=== PATIENT | male | born 1975 | race Caucasian/White ===

== ENCOUNTER 2018-12-10 06:25 | Inpatient (IN) | payer BC, OTHER ==
[2018-12-10 07:13] LABS: Absolute Lymphocytes (CBC) 1.7 K/uL (0.7-4.9); Basophils % 0.7 % (0-1.3); Hematocrit 45.5 % (39.6-49.0); Lymphocytes % 14.3 % (15.3-44.8); MPV 8.1 fL (7.6-11.3); RBC Red Blood Cell Count 5.06 M/uL (4.33-5.43)
[2018-12-10 07:14] LABS: Protime INR 1.17
[2018-12-10] MEDS ORDERED: METOPROLOL TARTRATE 5 MG/5 ML INJ IV ONE (07:23)
[2018-12-10 07:33] LABS: Albumin 4.2 g/dL (3.4-5.0); Bilirubin Direct 0.2 mg/dL (0-0.2); Bilirubin Total 0.9 mg/dL (0.2-1.0); Magnesium 2.2 mg/dL (1.8-2.4); Potassium 3.5 mmol/L (3.5-5.1); Protein, Total 7.8 g/dL (6.4-8.2); Troponin (Emerg Dept Use Only) 0.26 ng/mL (0.0-0.045)
--- NOTE | 2018-12-10 07:46 | ER ---
Nurse's Notes [facility] Name: Jere Pacheco Age: 43 yrs Sex: Male : 1975 Arrival Date: 12/10/2018 Time: 06:27 Bed 6 Private MD: Diagnosis: Cardiomegaly;Cardiomyopathy;Cardiac murmurs and other cardiac sounds Presentation: 12/10 06:48 Presenting complaint: Patient states: woke up this morning suddenly i felt my heart is rr5 raising around 135 bpm and my BP 170/112 mmHg. last time i went to my doctor doctor because i feel some SOB started 2-3 weeks ago and he diagnosed me something like lung tightening. he prescribed me some medications for that. Transition of care: patient was not received from another setting of care. Onset of symptoms was December 10, 2018. Risk Assessment: Do you want to hurt yourself or someone else? Patient reports no desire to harm self or others. Initial Sepsis Screen: Does the patient meet any 2 criteria? No. Patient's initial sepsis screen is negative. Does the patient have a suspected source of infection? No. Patient's initial sepsis screen is negative. Care prior to arrival: None. 06:48 Method Of Arrival: Ambulatory rr5 06:48 Acuity: EVAN 3 rr5 11:26 Acuity: EVAN 2 la1 Historical: - Allergies: 06:53 Erythromycin; rr5 - Home Meds: 06:53 lisinopril 5 mg Oral tab 1 tab once daily [Active]; anxiety medication [Active]; rr5 levothyroxine oral [Active]; Prednisone Oral [Active]; Symbicort inhalation inhalation [Active]; - PMHx: 06:53 Hypertension; hodgkins lymphoma; Hypothyroidism; Anxiety; Heart Murmur; rr5 - PSHx: 06:53 sinuplasty; biopsy; rr5 - Immunization history:: Adult Immunizations up to date. - Social history:: Smoking status: Patient/guardian denies using tobacco, Patient uses alcohol, only on a social basis. - Ebola Screening: : Patient negative for fever greater than or equal to 101.5 degrees Fahrenheit, and additional compatible Ebola Virus Disease symptoms Patient denies exposure to infectious person Patient denies travel to an Ebola-affected area in the 21 days before illness onset. Screenin:05 Abuse screen: Denies threats or abuse. Denies injuries from another. Nutritional rr5 screening: No deficits noted. Tuberculosis screening: No symptoms or risk factors identified. Fall Risk IV access (20 points). Total Garrett Fall Scale indicates No Risk (0-24 pts). Assessment: 07:26 Reassessment: Patient appears in no apparent distress at this time. Aubrey ENG notified of sg pt VS, ordered to hold on metoprolol until further notice, will continue to monitor. 08:05 Reassessment: Patient appears in no apparent distress at this time. Patient and/or sg family updated on plan of care and expected duration. Pain level reassessed. Patient is alert, oriented x 3, equal unlabored respirations, skin warm/dry/pink. awaiting ECHO at this time, awaiting admission, awaiting a bed assignment Patient states feeling better. 08:55 Reassessment: Patient appears in no apparent distress at this time. Patient is alert, sg oriented x 3, equal unlabored respirations, skin warm/dry/pink. ECHO at bedside at this time, awaiting a bed for admission, will continue to monitor. 09:30 Reassessment: Reassessment: Echo remains at bedside at this time. sg 10:30 Reassessment: Patient appears in no apparent distress at this time. at bedside evaluating pt at this time. 10:40 Reassessment: Patient appears in no apparent distress at this time. Patient is alert, sg oriented x 3, equal unlabored respirations, skin warm/dry/pink. pt reports felt palpitations but have resolved. 10:55 Reassessment: Patient is alert, oriented x 3, equal unlabored respirations, skin sg warm/dry/pink. pt placed back to bedside monitors. 10:58 Reassessment: pt reports feeling dizzy with chest palpitations, VTACH noted on the sg monitor, Aubrey ENG at bedside, orders received to medication orders, pt medicated, see EMAR. 12:15 Reassessment: Patient appears in no apparent distress at this time. Patient and/or sg family updated on plan of care and expected duration. Pain level reassessed. Patient is alert, oriented x 3, equal unlabored respirations, skin warm/dry/pink. IV medication continues to infuse at this time, awaiting a bed assignment. 13:36 Reassessment: Patient appears in no apparent distress at this time. Patient and/or sg family updated on plan of care and expected duration. Pain level reassessed. Patient is alert, oriented x 3, equal unlabored respirations, skin warm/dry/pink. awaiting a bed assignment at this time, pt remains in bed alert and orientedx3. Vital Signs: 06:48 BP 157 / 113; Pulse 112; Resp 19; Temp 98; Pulse Ox 100% ; Weight 85.73 kg; Height 5 rr5 ft. 8 in. (172.72 cm); Pain 0/10; 07:24 BP 124 / 96; Pulse 93; Resp 17; Pulse Ox 99% on R/A; sg 08:48 BP 120 / 94; Pulse 90; Resp 17; Pulse Ox 99% on R/A; sg 10:53 BP 154 / 113; Pulse 157 MON; Resp 26 S; Pulse Ox 100% on R/A; sg 10:55 Pulse Ox 100% on 2 lpm NC; sg 11:20 BP 140 / 96; Pulse 123; Resp 17; Pulse Ox 100% on 2 lpm NC; sg 12:00 BP 132 / 91; Pulse 100 MON; Resp 17; Pulse Ox 100% on R/A; sg 14:48 BP 133 / 92; Pulse 109; Resp 14; Pulse Ox 99% on R/A; hb 06:48 Body Mass Index 28.74 (85.73 kg, 172.72 cm) rr5 10:53 Aubrey ENG notified pt VS, at bedside at this time ED Course: 06:27 Patient arrived in ED. es 06:33 [facility] jr8 06:33 Matt Martínez MD is Attending Physician. jr8 06:50 Triage completed. rr5 06:50 Inserted saline lock: 20 gauge in right antecubital area, using aseptic technique. rr5 ,using aseptic technique. inserted by [facility] Blood collected. 06:53 Arm band placed on. rr5 06:55 Initial lab(s) drawn, by ED staff, sent to lab. Initial Neb Treatment Given as ordered rr5 Patient was instructed and evaluated on procedure. 07:00 EKG done, by ED staff, reviewed by Aubrey ENG. rr5 07:05 Patient has correct armband on for positive identification. Placed in gown. Bed in low rr5 position. equipment monitor phototypesetting on. Pulse ox on. NIBP on. 07:26 Familia Johnson, RN is Primary Nurse. sg 07:26 XRAY Chest (1 view) In Process Unspecified. EDMS 07:44 Fuentes Ruth MD is Hospitalizing Provider. jr8 11:24 EKG done, by [employer]. reviewed by Aubrey ENG TIMES TWO. at1 14:33 Diet: Patient given a heart healthy meal tray. sg 14:50 No provider procedures requiring assistance completed. Patient admitted, IV remains in hb place. intact, No redness/swelling at site. Administered Medications: 11:00 Drug: amiodarone 150 mg Route: IVP; Site: right antecubital; hb 11:00 Drug: amiodarone 900 mg, D5W 500 ml {Note: 360 mg/200ml concentration bag .} Route: hb IVPB; Rate: 1 mg/min; Site: right antecubital; 12:03 Not Given (Physician Discretion): Metoprolol 5 mg IVP once; Hold for SBP <100 or HR <60.sg Outcome: 07:45 Decision to Hospitalize by Provider. jr8 14:54 Admitted to ICU accompanied by nurse, accompanied by tech, family with patient, via stretcher, room 6, on monitor, with chart, Report called to JACKIE Vick 14:54 Condition: stable 14:54 Instructed on the need for admit, safety practices, Demonstrated understanding of instructions. 15:18 Patient left the ED. sg Signatures: Dispatcher [employer] EDIN Familia Johnson, RN RN Mayda Fitzgerald Josh, PA PA jr8 Lizbet Oliveira, chief human resources officer EKG Tat1 Bernabe Webb RN RN la1 iLta Viramontes RN RN hb Roque, Raymond RN RN rr5 Corrections: (The following items were deleted from the chart) 11:11 09:30 Reassessment: sg sg
--- NOTE | 2018-12-10 07:46 | EDPHYS ---
Physician Documentation [facility] Name: Jere Pacheco Age: 43 yrs Sex: Male : 1975 Arrival Date: 12/10/2018 Time: 06:27 Bed 6 Private MD: ED Physician Matt Martínez HPI: 12/10 07:24 This 43 yrs old Male presents to ER via Ambulatory with complaints of High jr8 Blood Pressure, Anxiety. 07:24 The patient has elevated blood pressure and discovered this at home. Onset: The jr8 symptoms/episode began/occurred acutely, today. Associated signs and symptoms: Pertinent positives: palpitations. The patient has not experienced similar symptoms in the past. The patient has not recently seen a physician. Patient stated that for the past 3 weeks has had on/off shortness of breath. Stated that today upon awakening had palpitations and noted that his blood pressure was elevated. Historical: - Allergies: 06:53 Erythromycin; rr5 - Home Meds: 06:53 lisinopril 5 mg Oral tab 1 tab once daily [Active]; anxiety medication [Active]; rr5 levothyroxine oral [Active]; Prednisone Oral [Active]; Symbicort inhalation inhalation [Active]; - PMHx: 06:53 Hypertension; hodgkins lymphoma; Hypothyroidism; Anxiety; Heart Murmur; rr5 - PSHx: 06:53 sinuplasty; biopsy; rr5 - Immunization history:: Adult Immunizations up to date. - Social history:: Smoking status: Patient/guardian denies using tobacco, Patient uses alcohol, only on a social basis. - Ebola Screening: : Patient negative for fever greater than or equal to 101.5 degrees Fahrenheit, and additional compatible Ebola Virus Disease symptoms Patient denies exposure to infectious person Patient denies travel to an Ebola-affected area in the 21 days before illness onset. ROS: 07:24 Eyes: Negative for injury, pain, redness, and discharge, ENT: Negative for injury, jr8 pain, and discharge, Neck: Negative for injury, pain, and swelling, Abdomen/GI: Negative for abdominal pain, nausea, vomiting, diarrhea, and constipation, Back: Negative for injury and pain, MS/Extremity: Negative for injury and deformity, Skin: Negative for injury, rash, and discoloration, Neuro: Negative for headache, weakness, numbness, tingling, and seizure. 07:24 Cardiovascular: Positive for palpitations. 07:24 Respiratory: Positive for shortness of breath. Exam: 07:24 Eyes: Pupils equal round and reactive to light, extra-ocular motions intact. Lids and jr8 lashes normal. Conjunctiva and sclera are non-icteric and not injected. Cornea within normal limits. Periorbital areas with no swelling, redness, or edema. ENT: Nares patent. No nasal discharge, no septal abnormalities noted. Tympanic membranes are normal and external auditory canals are clear. Oropharynx with no redness, swelling, or masses, exudates, or evidence of obstruction, uvula midline. Mucous membranes moist. Neck: Trachea midline, no thyromegaly or masses palpated, and no cervical lymphadenopathy. Supple, full range of motion without nuchal rigidity, or vertebral point tenderness. No Meningismus. Respiratory: Lungs have equal breath sounds bilaterally, clear to auscultation and percussion. No rales, rhonchi or wheezes noted. No increased work of breathing, no retractions or nasal flaring. Abdomen/GI: Soft, non-tender, with normal bowel sounds. No distension or tympany. No guarding or rebound. No evidence of tenderness throughout. Back: No spinal tenderness. No costovertebral tenderness. Full range of motion. Skin: Warm, dry with normal turgor. Normal color with no rashes, no lesions, and no evidence of cellulitis. MS/ Extremity: Pulses equal, no cyanosis. Neurovascular intact. Full, normal range of motion. Neuro: Awake and alert, GCS 15, oriented to person, place, time, and situation. Cranial nerves II-XII grossly intact. Motor strength 5/5 in all extremities. Sensory grossly intact. Cerebellar exam normal. Normal gait. 07:24 Cardiovascular: Rate: tachycardic, Rhythm: regular, Pulses: Pulses are 2+ in right radial artery and left radial artery. Heart sounds: murmur, systolic, grade 4 over 6, Edema: is not appreciated, JVD: is not appreciated. Vital Signs: 06:48 BP 157 / 113; Pulse 112; Resp 19; Temp 98; Pulse Ox 100% ; Weight 85.73 kg; Height 5 rr5 ft. 8 in. (172.72 cm); Pain 0/10; 07:24 BP 124 / 96; Pulse 93; Resp 17; Pulse Ox 99% on R/A; sg 08:48 BP 120 / 94; Pulse 90; Resp 17; Pulse Ox 99% on R/A; sg 10:53 BP 154 / 113; Pulse 157 MON; Resp 26 S; Pulse Ox 100% on R/A; sg 10:55 Pulse Ox 100% on 2 lpm NC; sg 11:20 BP 140 / 96; Pulse 123; Resp 17; Pulse Ox 100% on 2 lpm NC; sg 12:00 BP 132 / 91; Pulse 100 MON; Resp 17; Pulse Ox 100% on R/A; sg 14:48 BP 133 / 92; Pulse 109; Resp 14; Pulse Ox 99% on R/A; hb 06:48 Body Mass Index 28.74 (85.73 kg, 172.72 cm) rr5 10:53 Aubrey ENG notified pt VS, at bedside at this time sg MDM: 06:33 Patient medically screened. jr8 07:43 Data reviewed: vital signs, nurses notes, lab test result(s), EKG, radiologic studies, jr8 plain films. Data interpreted: Pulse oximetry: on room air is 99 %. Interpretation: normal. Counseling: I had a detailed discussion with the patient and/or guardian regarding: the historical points, exam findings, and any diagnostic results supporting the discharge/admit diagnosis, lab results, radiology results, the need for further work-up and treatment in the hospital. Physician consultation: Fuentes Ruth MD was called at 07:44, was contacted at 07:44, regarding admission, to the telemetry unit. consult, patient's condition, and will see patient. 11:07 ED course: Patient had stable pulseful V-Tach at rate of 150 that lasted about 2 jr8 minutes and then went back into LBBB rhythm with tachycardia at 126. Amiodarone given and will be upgraded to ICU . 12/10 06:47 Order name: Basic Metabolic Panel; Complete Time: 07:35 jr8 12/10 06:47 Order name: CBC with Diff; Complete Time: 07:24 jr8 12/10 06:47 Order name: LFT's; Complete Time: 07:35 jr8 12/10 06:47 Order name: Magnesium; Complete Time: 07:35 jr8 12/10 06:47 Order name: NT PRO-BNP; Complete Time: 07:35 12/10 06:47 Order name: PT-INR; Complete Time: 07:24 12/10 06:47 Order name: Troponin (emerg Dept Use Only); Complete Time: 07:35 12/10 06:47 Order name: XRAY Chest (1 view); Complete Time: 08:39 12/10 06:47 Order name: EKG; Complete Time: 06:48 12/10 07:51 Order name: Echo with Doppler EDMS 12/10 13:41 Order name: Diet 2 Gm Sodium; Complete Time: 13:42 ms 12/10 06:47 Order name: Cardiac monitoring; Complete Time: 07:03 12/10 06:47 Order name: EKG - Nurse/Tech; Complete Time: 07:03 12/10 06:47 Order name: IV Saline Lock; Complete Time: 07:03 12/10 06:47 Order name: Labs collected and sent; Complete Time: 07:03 12/10 06:47 Order name: O2 Per Protocol; Complete Time: 07:03 12/10 06:47 Order name: O2 Sat Monitoring; Complete Time: 07:04 Administered Medications: 11:00 Drug: amiodarone 150 mg Route: IVP; Site: right antecubital; hb 11:00 Drug: amiodarone 900 mg, D5W 500 ml {Note: 360 mg/200ml concentration bag .} Route: hb IVPB; Rate: 1 mg/min; Site: right antecubital; 12:03 Not Given (Physician Discretion): Metoprolol 5 mg IVP once; Hold for SBP <100 or HR <60.sg Disposition: 12/11 04:20 Co-signature as Attending Physician, Matt Martínez MD I agree with the assessment and lynn plan of care. Disposition: 12/10/18 07:45 Hospitalization ordered by Fuentes Ruth for Inpatient Admission. Preliminary diagnosis are Cardiomegaly, Cardiomyopathy, Cardiac murmurs and other cardiac sounds. - Bed requested for Intensive Care Unit. - Status is Inpatient Admission. sg - Condition is Stable. - Problem is new. - Symptoms have improved. UTI on Admission? No Critical care time excluding procedures: 12/10 11:08 Critical care time: Bedside Care: 20 minutes, Consultation: 15 minutes. Total time: 35 jr8 minutes Signatures: Dispatcher [employer] EDDaphnie Antoine, RN RN dw Familia Johnson RN Matt Deleon MD MD cha Roszak, Josh, PA PA jr8 Lita Viramontes, RN RN Corwin Montanez, RN RN rr5 Corrections: (The following items were deleted from the chart) 11:07 07:45 Hospitalization Ordered by Fuentes Ruth MD for Inpatient Admission. Preliminary jr8 diagnosis is Cardiomegaly; Cardiomyopathy; Cardiac murmurs and other cardiac sounds. Bed requested for Telemetry/MedSurg (Inpatient). Status is Inpatient Admission. Condition is Stable. Problem is new. Symptoms have improved. UTI on Admission? No. jr8 14:38 11:07 12/10/2018 07:45 Hospitalization Ordered by Fuentes Ruth MD for Inpatient dw Admission. Preliminary diagnosis is Cardiomegaly; Cardiomyopathy; Cardiac murmurs and other cardiac sounds. Bed requested for Intensive Care Unit. Status is Inpatient Admission. Condition is Stable. Problem is new. Symptoms have improved. UTI on Admission? No. jr8 15:18 14:38 12/10/2018 07:45 Hospitalization Ordered by Fuentes Ruth MD for Inpatient sg Admission. Preliminary diagnosis is Cardiomegaly; Cardiomyopathy; Cardiac murmurs and other cardiac sounds. Bed requested for Intensive Care Unit. Status is Inpatient Admission. Condition is Stable. Problem is new. Symptoms have improved. UTI on Admission? No. dw
--- NOTE | 2018-12-10 08:24 | RAD REPORT ---
EXAM DESCRIPTION: Ciara Single View12/10/2018 7:27 am CLINICAL HISTORY: Shortness of breath COMPARISON: 2018 FINDINGS: Calcified hilar and calcified mediastinal lymph nodes are unchanged The lungs appear clear of acute infiltrate. The heart is normal size IMPRESSION: No acute abnormalities displayed
[2018-12-10] MEDS ORDERED: NA CHLORIDE 0.9% 100 ML IV ONE (10:58)
[2018-12-10] MEDS ORDERED: AMIODARONE HCL 150 MG/3 ML INJ IV ONE ×2 (10:58→11:01)
[2018-12-10] MEDS ORDERED: AMIODARONE IN DEXTROSE,ISO-OSM 360 MG/200 ML BAG IV ONE (10:58)
--- NOTE | 2018-12-10 11:03 | EKG ---
Test Date: 2018-12-10 Test Time: 06:59:04 Underground Repairer: RR MEASUREMENT RESULTS: Intervals: Rate: 95 [place]: 156 QRSD: 150 QT: 398 QTc: 500 [place]: P: 40 [place]: 156 QRS: 34 T: -59 INTERPRETIVE STATEMENTS: Normal sinus rhythm Left bundle branch block Abnormal ECG Compared to ECG 02/14/2017 11:46:55 Left bundle-branch block now present Left anterior fascicular block no longer present Left ventricular hypertrophy no longer present Electronically Signed On 12-10-18 11:02:47 CDT by Luis Alberto Munoz
--- NOTE | 2018-12-10 11:10 | ECHO ---
HEIGHT: 5 ft 8 in WEIGHT: 189 lb oz DATE OF STUDY: 12/10/[address]: Richard Carcamo 2-DIMENSIONAL: YES M.MODE: YES DOPPLER: YES COLOR FLOW: YES TDS: NO PORTABLE: NO DEFINITY: NO BUBBLE STUDY: NO DIAGNOSIS: ELEVATED TROPONIN CARDIAC HISTORY: CATHERIZATION: NO SURGERY: NO PROSTHETIC VALVE: NO PACEMAKER: NO MEASUREMENTS (cm) DIASTOLIC (NORMALS) SYSTOLIC (NORMALS) IVSd 1.1 (0.6-1.2) LA Diam 3.0 (1.9-4.0) LVEF 62% LVIDd 4.0 (3.5-5.7) LVIDs 2.7 (2.0-3.5) %FS 33% LVPWd 0.9 (0.6-1.2) Ao Diam 2.7 (2.0-3.7) 2 DIMENSIONAL ASSESSMENT: RIGHT ATRIUM: NORMAL LEFT ATRIUM: NORMAL RIGHT VENTRICLE: NORMAL LEFT VENTRICLE: NORMAL TRICUSPID VALVE: NORMAL MITRAL VALVE: NORMAL PULMONIC VALVE: NORMAL AORTIC VALVE: STENOSIS PERICARDIAL EFFUSION: NONE AORTIC ROOT: NORMAL LEFT VENTRICULAR WALL MOTION: NORMAL. DOPPLER/COLOR FLOW: MODERATE AORTIC STENOSIS. PEAK/MEAN GRADIENT 37/20 mmHg, ESTIMATED AORTIC VALVE AREA 1.0 CENTIMETERS SQUARED. MILD AORTIC, MITRAL AND TRICUSPID REGURGITATION. NORMAL RIGHT VENTRICULAR SYSTOLIC PRESSURE. COMMENTS: NORMAL LEFT VENTRICULAR EJECTION FRACTION. MODERATE AORTIC STENOSIS. MILD AORTIC, MITRAL AND TRICUSPID REGURGITATION. TECHNOLOGIST: BRICE HORAN
[2018-12-10] MEDS: LISINOPRIL 5 MG TAB PO SCH (14:49)
[2018-12-10] MEDS ORDERED: ONDANSETRON 4 MG/2 ML VIAL IV PRN (14:49)
[2018-12-10] MEDS ORDERED: AMIODARONE HCL 900 MG in Dextrose 5%-Water 482 ML IV SCH (15:00)
--- NOTE | 2018-12-10 15:51 | EKG ---
Test Date: 2018-12-10 Test Time: 10:58:15 Chief Pharmacist: RADHA MEASUREMENT RESULTS: Intervals: Rate: 128 VT: 128 QRSD: 150 QT: 340 QTc: 496 [place]: P: 45 VT: 128 QRS: -27 T: 117 INTERPRETIVE STATEMENTS: Sinus tachycardia Left bundle branch block Abnormal ECG Compared to ECG 12/10/2018 10:57:47 No significant changes Electronically Signed On 12-10-18 15:51:17 CDT by Luis Alberto Munoz
--- NOTE | 2018-12-10 15:51 | EKG ---
Test Date: 2018-12-10 Test Time: 10:57:47 Senior Human Resources Representative: RADHA MEASUREMENT RESULTS: Intervals: Rate: 133 [place]: 112 QRSD: 146 QT: 326 QTc: 485 [place]: P: -11 CA: 112 QRS: -28 T: 137 INTERPRETIVE STATEMENTS: Sinus tachycardia Left bundle branch block Abnormal ECG Compared to ECG 12/10/2018 06:59:04 Sinus rhythm no longer present Electronically Signed On 12-10-18 15:51:19 CDT by Luis Alberto Munoz
[2018-12-10] MEDS ORDERED: ALBUTEROL 2.5 MG/3 ML NEB SOL NEB PRN (16:10)
--- NOTE | 2018-12-10 16:17 | CON ---
Chief Complaint: Heart racing and dyspnea. History Of Present Illness: Mr. Pacheco has been aware of having heart murmur 3 years ago, and ech ocardiogram suggested aortic sclerosis, no stenosis, but now his murmur is worst. He has symptoms of dyspnea. He felt his heart rate went about 130. He counted it using a watch. No EKG. His heart r ate here in the emergency room is right around exactly 100; and when he had his EKG, the heart rate w as 95. It was sinus rhythm. He has a new left bundle-branch block. It looks like his QRS is wideni ng progressively over the years old. Older EKG showed left ventricular hypertrophy with QRS widening . Past Medical History: Hypertension, Hodgkin lymphoma, hypothyroidism, heart murmur. Past Surgical History: He has had sinuplasty. No other surgeries. Medications: Outpatient medications have been lisinopril, levothyroxine, prednisone, Symbicort. Social History: He uses no tobacco, alcohol, or illegal drugs. Physical Examination: VITAL SIGNS: Blood pressure 124/96, pulse 93. He is 5 feet 8 inches tall, 85 kg. Body mass index, overweight 28.74. HEENT: Unremarkable. LUNGS: Clear. HEART: Reveals a systolic murmur. I do not appreciate a diastolic murmur. ABDOMEN: Soft. EXTREMITIES: No cyanosis, clubbing, or edema. He has a troponin level is 0.26. Impression: The patient has probably significant aortic valvular heart disease. The echocardiograph ic gradient was just 36 mmHg peak, but I suspect it is actually worse than that. We will get serial enzymes and observe him overnight. He probably needs to have a right and left heart catheterization and consideration of fixing the valve. Thank you very much for your kind referral of Mr. Pacheco. I will follow him with you. NORBERT/LAVERNE Voice ID: [id number] Report ID: [id number]
[2018-12-10] MEDS: ASPIRIN EC 81 MG TAB PO SCH (16:20)
[2018-12-10] MEDS: ENOXAPARIN 100 MG/ML SYR SQ SCH (16:20)
[2018-12-10] MEDS: FUROSEMIDE 40 MG/4 ML VIAL IV SCH ×2 (16:20→17:00)
[2018-12-10] MEDS: METOPROLOL TAR 25 MG TAB PO SCH ×2 (16:21→22:40)
[2018-12-10] MEDS ORDERED: ALBUTEROL 2.5 MG/3 ML NEB SOL NEB SCH (20:00)
[2018-12-10] MEDS: ATORVASTATIN 40 MG TAB PO SCH (21:16)
--- NOTE | 2018-12-10 22:25 | HP ---
Date of Admission: 12/10/2018 Chief Complaint: Shortness of breath. Primary Care Physician: Minerva Dodd. Consultants: Dr. Munoz with Cardiology. History Of Present Illness: The patient is a 43-year-old male with past medical history of hypertension, hyperlipidemia, hypothyroidism, history of cardiac murmur and lymphoma that was diagnosed 20 years ago, treated, currently in remission. Patient was in his usual state of health until the past few days , he has been having shortness of breath worse than usual and has had several bouts of palpitations. Patient has known about his murmur in the past and had the echocardiogram done in 2016, which showed mild aortic and tricuspid regurg, aortic sclerosis with no stenosis. The patient came into the ER due to worsening condition. Symptoms are constant, moderate, progressively worsening. He denies any fevers, chills, nausea, vomiting, cough, or sputum production. No ill contacts. In the ER, he was tachycardic, had some chest tightness. His workup revealed a troponin of 0.26. BNP was elevated at 860. White blood cell count was 11.5. Chest x-ray was clear. Patient was given metoprolol. He was then referred for admission. When seen in the ER, he was awake, alert, oriented x3, in some mild distress. Past Medical History: Hypertension, hyperlipidemia, hypothyroidism, history of heart murmur, lymphoma treated 20 years ago with chemo and radiation therapy. Surgical History: The patient had a sinus surgery, sounds like a septoplasty, also had biopsy for his lymphoma 20 years ago. Allergies: TO ERYTHROMYCIN, HOWEVER, STATES THAT HE HAS RECEIVED IT SINCE HIS CHILDHOOD ALLERGY AND HAS DONE OKAY. Medications: List reviewed. Social History: Patient denies any tobacco use. No significant alcohol use or IV drug use. Family History: Grandfather had murmur and also had atrial fibrillation. Grandmother of [place]. Review of Systems: Ten-point system reviewed, negative except as per HPI. Physical Examination: Vital Signs: Blood pressure 157/113, pulse 112, respirations 19, temperature 98 , O2 100% on room air. General: Awake, alert, oriented x3, in some mild distress, somewhat ill- appearing male. HEENT: Normocephalic, atraumatic. PERRLA. EOMI. Moist mucous membranes. Oropharynx is clear. Conjunctivae are anicteric. Neck: Supple. No JVD. Trachea midline. CV: S1, S2. Sinus tachycardia. Peripheral pulses present. Respiratory: Moving air well bilaterally. No wheezing or stridor. No use of accessory muscles. Gastrointestinal: Abdomen is soft, nontender, nondistended. Positive bowel sounds. No guarding or rigidity. Extremities: No clubbing, cyanosis, or edema. No calf tenderness. Neuro: Cranial nerves 2 through 12 intact grossly. No focal neurological deficit. Speech is normal. Please see addendum for Assessment and plan /LAVERNE Voice ID: [id number] MTDD
--- NOTE | 2018-12-10 22:51 | HP ---
Date of Admission: 12/10/2018 Addendum to H&P: Laboratory Data: Sodium 140, potassium 3.5, chloride 106, CO2 of 28, BUN 17, creatinine 1.3, glucose 127, calcium 8.8, magnesium 2.2, troponin 0.26. INR 1.17. WBC 11.5, H and H 15 and 45.5, platelets 346. EKG shows normal sinus rhythm, rate of 95, left bundle branch block. Abnormal EKG compared to previous from February 14, 2017. Left bundle branch block is new. Chest x-ray personally reviewed shows no acute abnormality. Assessment: A 43-year-old male with, 1. Psh-RO-bfozoekam myocardial infarction. We will start him on chest pain guidelines, aspirin, statin, beta-kinjal and MARCELLUS inhibitor. Cardiology has been consulted. We will obtain echocardiogram and get serial cardiac enzymes. We will start him on Lovenox therapeutic dose. 2. Shortness of breath, likely related to valvular disease. We will obtain echocardiogram. Currently somewhat tachycardic, however saturating well on room air. 3. Heart murmur. Patient has history of mild aortic sclerosis. We will follow up on echocardiogram report. Appreciate Cardiology's input. 4. Essential hypertension. We will resume home medications as appropriate. 5. Mixed hyperlipidemia. We will check lipid panel, continue statin. 6. Hypothyroidism. Continue Synthroid. 7. History of lymphoma, currently in remission. 8. Deep vein thrombosis prophylaxis with Lovenox. Plan: Admit patient to Med-Surg, place as inpatient. CHARU Voice ID: [id number] [id number]
[2018-12-11 05:29] LABS: Hematocrit 43.9 % (39.6-49.0); Lymphocytes % 16.1 % (15.3-44.8); MPV 8.1 fL (7.6-11.3); RBC Red Blood Cell Count 4.91 M/uL (4.33-5.43)
[2018-12-11 05:51] LABS: Albumin 3.7 g/dL (3.4-5.0); Bilirubin Total 0.7 mg/dL (0.2-1.0); Magnesium 2.4 mg/dL (1.8-2.4); Phosphorus 3.6 mg/dL (2.5-4.9); Potassium 3.8 mmol/L (3.5-5.1); Protein, Total 7.2 g/dL (6.4-8.2); Thyroid Stimulating Hormone 3.73 uIU/mL (0.360-3.740)
[2018-12-11] MEDS ORDERED: POTASSIUM 25 MEQ EFFERV TAB PO ONE (06:00)
[2018-12-11] MEDS: LEVOTHYROXINE SOD 0.1 MG TAB PO SCH (06:40)
[2018-12-11] MEDS: ENOXAPARIN 100 MG/ML SYR SQ SCH ×2 (06:40→18:02)
[2018-12-11] MEDS: LISINOPRIL 5 MG TAB PO SCH (08:57)
[2018-12-11] MEDS: BUPROPION HCL XL 150 MG TAB PO SCH (08:57)
[2018-12-11] MEDS: ASPIRIN EC 81 MG TAB PO SCH (08:57)
[2018-12-11] MEDS ORDERED: predniSONE 10 MG TAB PO SCH (09:00)
[2018-12-11] MEDS: FUROSEMIDE 40 MG/4 ML VIAL IV SCH ×2 (09:00→14:46)
[2018-12-11] MEDS: METOPROLOL TAR 25 MG TAB PO SCH ×2 (09:00→21:00)
[2018-12-11] MEDS ORDERED: COENZYME Q10 400 MG PO SCH (09:00)
[2018-12-11] MEDS ORDERED: HOME MED 1 EA UNK (Budesonide/Formoterol Fumarate [Symbicort 80-4.5 Mcg Inhaler] 2 PUFF) IH SCH (09:00)
[2018-12-11] MEDS: PANTOPRAZOLE 40MG TABLET PO SCH (14:45)
[2018-12-11] MEDS: AMIODARONE HCL 200 MG TAB PO SCH ×2 (14:45→21:11)
[2018-12-11] MEDS: COENZYME Q10- 200 MG CAP PO SCH (14:46)
--- NOTE | 2018-12-11 16:47 | PN ---
Mr. Pacheco seems to have abnormal enzymes, a lot of symptoms, so even though the echo says his aor tic stenosis is moderate, I suspect it is more severe. I have recommended that on Thursday we do a car diac cath. I think we should try to wean him off amiodarone, if successful, we could get him out of ICU perhaps, but he has aortic stenosis. He may have CAD as well. We suspect that the cause of his aortic stenosis is radiation right to the heart area. 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 If he has multivessel CAD and the aortic stenosis, I will recommend simultane ous aortic valve replacement and bypass surgery. NORBERT/LAVERNE Voice ID: [id number] Report ID: [id number]
--- NOTE | 2018-12-11 16:48 | PN ---
Date of Progress Note: 12/11/2018 Subjective: Patient is seen and examined. Chart reviewed and case discussed with RN and Dr. Munoz. Patient did well overnight. He did have some episodes of V-tach, was started on IV amiodarone from the ER. Medications list reviewed. Physical Examination: Vital Signs: Temperature 97.8, heart rate 68, blood pressure 93/67, respirations 17, O2 100% on room air. General: Awake, alert, oriented x3. Does not appear to be in any acute distress. CV: S1, S2. Regular rate and rhythm. Respiratory: Moving air well bilaterally. No wheezing or stridor. Gastrointestinal: Abdomen is soft, nontender, nondistended. Positive bowel sounds. Extremities: No clubbing, cyanosis, or edema. Neuro: Cranial nerves 2 through 12 intact grossly. No focal neurological deficit. Speech is normal . Laboratory Data: Sodium 140, potassium 3.8, chloride 104, CO2 of 30, BUN 17, creatinine 1.25, glucos e 99, calcium 8.7, phosphorus 3.6, magnesium 2.4. Troponin 0.26, 0.20, 0.21. Triglycerides 119, cho lesterol 113. LDL 48, HDL 41, TSH 3.7. WBC 12.6, H and H of 14.4 and 43.9, platelets 231, neutrophi ls 66%. Assessment And Plan: A 43-year-old male with: 1.Rny-IC-hdthqxk elevation myocardial infarction. Continue with chest pain guidelines. Appreciate C ardiology input. 2.Moderate aortic valvular stenosis. Echocardiogram reviewed. Patient will need cardiac catheteriz ation and subsequent CT Surgery evaluation. 3.Shortness of breath secondary to above, improving. 4.Essential hypertension, stable. Currently somewhat hypotensive we will hold Lasix for right now. Adjust medications as appropriate. 5.Mixed hyperlipidemia. Lipid panel is normal. We will continue statin. 6.Hypothyroidism. We will continue Synthroid. 7.History of lymphoma, currently in remission. 8.Deep venous thrombosis prophylaxis with Lovenox. Plan to step down from ICU. 9.Ventricular tachycardia. Switch over to p.o. amiodarone. Patient likely developed worsening valv ular stenosis from his radiation therapy. Anticipate heart catheterization. SA/MODL Voice ID: [id number] Report ID: [id number]
[2018-12-11] MEDS ORDERED: COQ10 200 MG PO SCH (17:00)
[2018-12-11] MEDS: ATORVASTATIN 40 MG TAB PO SCH (21:11)
[2018-12-12] MEDS: METOPROLOL TAR 25 MG TAB PO SCH ×3 (01:27→16:33)
[2018-12-12 05:52] LABS: Basophils % 1.2 % (0-1.3); Hematocrit 41.2 % (39.6-49.0); Lymphocytes % 16.6 % (15.3-44.8); MPV 8.4 fL (7.6-11.3); RBC Red Blood Cell Count 4.62 M/uL (4.33-5.43)
[2018-12-12 06:01] LABS: Albumin 3.6 g/dL (3.4-5.0); Bilirubin Total 0.6 mg/dL (0.2-1.0); Magnesium 2.4 mg/dL (1.8-2.4); Potassium 3.9 mmol/L (3.5-5.1)
[2018-12-12] MEDS: ENOXAPARIN 100 MG/ML SYR SQ SCH (06:29)
[2018-12-12] MEDS: PANTOPRAZOLE 40MG TABLET PO SCH (06:30)
[2018-12-12] MEDS: LEVOTHYROXINE SOD 0.1 MG TAB PO SCH (06:30)
[2018-12-12 06:44] VITALS: BMI 26.4
[2018-12-12] MEDS: ASPIRIN EC 81 MG TAB PO SCH (08:58)
[2018-12-12] MEDS: DOCUSATE NA 100 MG CAP PO SCH ×3 (08:58→21:00)
[2018-12-12] MEDS: LISINOPRIL 5 MG TAB PO SCH (08:58)
[2018-12-12] MEDS: AMIODARONE HCL 200 MG TAB PO SCH ×2 (08:58→21:45)
[2018-12-12] MEDS: BUPROPION HCL XL 150 MG TAB PO SCH (08:58)
[2018-12-12] MEDS: FUROSEMIDE 40 MG/4 ML VIAL IV SCH (08:59)
[2018-12-12] MEDS: [UNRECOGNIZED DRUG - OTHER] PO SCH (09:00)
[2018-12-12] MEDS: CO Q PO SCH (09:00)
[2018-12-12] MEDS ORDERED: POTASSIUM 25 MEQ EFFERV TAB PO ONE (09:00)
[2018-12-12] MEDS: ACETAMINOPHEN 500 MG TAB PO PRN (13:14)
--- NOTE | 2018-12-12 14:18 | PN ---
Date of Progress Note: 12/12/2018 Subjective: The patient is seen and examined. Chart reviewed and case discussed with RN. The patie nt is doing well, now off amiodarone drip, and will be stepped down from the ICU once bed available. Medications List: Reviewed. Physical Examination: Vital Signs: Temperature 98.7, heart rate 69, blood pressure 102/73, respirations 12, O2 saturation 100% on room air. General: Awake, alert, oriented x3, not in any acute distress. CV: S1 and S2. Murmur present. Respiratory: Moving air well bilaterally. No wheezing or stridor. Gastrointestinal: Abdomen is soft, nontender, nondistended. Positive bowel sounds. Extremities: No clubbing or cyanosis. Trace pedal edema. Neurologic: Nonfocal. Laboratory Data: Sodium 139, potassium 3.9, chloride 105, CO2 of 29, BUN 24, creatinine 1.17, glucos e 95, calcium 8.8, magnesium 2.4. WBC 12, H and H of 13.5 and 41.2, platelets 316, neutrophils 66%. Assessment And Plan: 43-year-old male with: 1.Loy-DK-xspkdwvpq myocardial infarction. Cardiac cath scheduled for tomorrow. 2.Moderate possibly severe aortic valvular stenosis. Appreciate Cardiology input. He may need aort ic valve replacement, which will be set up as outpatient. 3.Shortness of breath secondary to above, improving, now on room air. 4.Essential hypertension. The patient is currently on the normotensive to hypotensive side. We joi l decrease dose of metoprolol. 5.Mixed hyperlipidemia. Continue statin. 6.Hypothyroidism. Continue Synthroid. 7.History of lymphoma, status post radiation therapy with long-term side effects including hypothyro idism and cardiovascular side effects. 8.Ventricular tachycardia, now on p.o. amiodarone. We will continue to monitor. 9.Deep venous thrombosis prophylaxis with Lovenox. Plan for heart catheterization. /LAVERNE Voice ID: [id number] Report ID: [id number]
--- NOTE | 2018-12-12 16:31 | PN ---
Mr. Pacheco is asymptomatic. He had a run of some kind of supraventricular arrhythmia. The QRS mo rphology was identical to his sinus. Heart rate was about 130. I suspect it was atrial flutter that resolved. He is still on Betapace. I do not think he had ventricular tachycardia. I think he has aortic stenosis and CAD, both from previous radiation to the heart from when he had Hodgkin disease. He is due to have a heart cath, possibly a stent. It will be right and left heart cath to assess ao rtic stenosis, coronary heart disease. The patient seems to understand the procedure, its potential benefits, indications, risks, and agrees to proceed. NORBERT/LAVERNE Voice ID: [id number] Report ID: [id number]
[2018-12-12] MEDS: COENZYME Q10- 200 MG CAP PO SCH (18:00)
[2018-12-12] MEDS: ATORVASTATIN 40 MG TAB PO SCH (21:45)
[2018-12-13] MEDS: ACETAMINOPHEN 500 MG TAB PO PRN (02:16)
[2018-12-13] MEDS ORDERED: NA CHLORIDE 0.9% 1,000 ML ONE (05:49)
[2018-12-13] MEDS: METOPROLOL TAR 25 MG TAB PO SCH ×2 (05:52→17:21)
[2018-12-13] MEDS: PANTOPRAZOLE 40MG TABLET PO SCH (05:52)
[2018-12-13] MEDS: LEVOTHYROXINE SOD 0.1 MG TAB PO SCH (05:52)
[2018-12-13 05:53] LABS: Absolute Lymphocytes (CBC) 1.6 K/uL (0.7-4.9); Basophils % 0.9 % (0-1.3); Hematocrit 43.1 % (39.6-49.0); Lymphocytes % 15.6 % (15.3-44.8); MPV 8.4 fL (7.6-11.3); RBC Red Blood Cell Count 4.87 M/uL (4.33-5.43)
[2018-12-13 06:00] LABS: Albumin 3.9 g/dL (3.4-5.0); Bilirubin Total 0.6 mg/dL (0.2-1.0); Potassium 3.8 mmol/L (3.5-5.1); Protein, Total 7.5 g/dL (6.4-8.2)
[2018-12-13] MEDS ORDERED: LIDOCAINE 1% 20 ML MDV ONE (07:09)
[2018-12-13] MEDS ORDERED: HEPA 1000U/500MLS 2,000 UNIT/1,000 ML BAG IV ONE (07:09)
[2018-12-13] MEDS ORDERED: NA CHLORIDE 0.9% 50 ML ONE (07:10)
[2018-12-13] MEDS ORDERED: ATROPINE SULF 1 MG/10 ML SYR IV ONE (07:10)
[2018-12-13] MEDS: ASPIRIN EC 81 MG TAB PO SCH (07:18)
[2018-12-13] MEDS ORDERED: NA CHLORIDE 0.9% 500 ML ONE ×2 (07:48→09:04)
[2018-12-13] MEDS ORDERED: MIDAZOLAM HCL 2 MG/2 ML INJ ONE ×2 (07:48→07:59)
[2018-12-13] MEDS ORDERED: FENTANYL CITR 100 MCG/2 ML ONE (07:48)
[2018-12-13] MEDS ORDERED: PRASUGREL (EFFIENT) 10 MG TAB ONE (08:36)
[2018-12-13] MEDS ORDERED: NITROGLYCERIN 100 MCG/ML SYR (for cath lab use only) IV ONE (08:51)
[2018-12-13] MEDS ORDERED: NITROGLYCERIN/D5W 25 MG/250 ML BTL IV ONE (08:51)
[2018-12-13] MEDS: DOCUSATE NA 100 MG CAP PO SCH ×2 (09:00→20:18)
[2018-12-13] MEDS: CO Q PO SCH (09:00)
[2018-12-13] MEDS: [UNRECOGNIZED DRUG - OTHER] PO SCH (09:00)
[2018-12-13] MEDS: AMIODARONE HCL 200 MG TAB PO SCH (09:00)
[2018-12-13] MEDS: BUPROPION HCL XL 150 MG TAB PO SCH (09:00)
[2018-12-13] MEDS: FUROSEMIDE 40 MG/4 ML VIAL IV SCH (09:00)
[2018-12-13] MEDS ORDERED: POTASSIUM CL SA 10 MEQ TAB PO ONE (09:00)
[2018-12-13] MEDS: LISINOPRIL 5 MG TAB PO SCH (09:00)
[2018-12-13] MEDS ORDERED: NITROGLYCERIN 0.4 MG/TAB SL PRN (15:00)
[2018-12-13] MEDS ORDERED: ACETAMINOPHEN 325 MG TABLET PO PRN (15:00)
[2018-12-13] MEDS ORDERED: NA CHLORIDE 0.9% 1,000 ML IV SCH (15:00)
[2018-12-13] MEDS: COENZYME Q10- 200 MG CAP PO SCH (17:22)
--- NOTE | 2018-12-13 19:57 | PN ---
Date of Progress Note: 12/13/2018 Subjective: Patient was seen and examined. Chart reviewed and case discussed with RN and Dr. Munoz . Patient went for cardiac cath this morning and had stent placed in the RCA. Medications: Medications list reviewed. Physical Examination: Vital Signs: Temperature 97.2, heart rate 58, blood pressure 101/60, respirations 15, O2 95% on room air. General: Awake, alert, oriented x3, not in any acute distress. CV: S1, S2. Regular rate and rhythm. Systolic murmur present /6. Respiratory: Moving air well bilaterally. No wheezing or stridor. No use of accessory muscles. Gas trointestinal: Abdomen is soft, nontender, nondistended. Positive bowel sounds. Extremities: No clubbing, cyanosis, or edema. Neurologic: Nonfocal. Skin: Cath site on the right groin clean, dry, and intact. No hematoma. Patient's right lower extr emity is neurovascularly intact. Laboratory Data: Sodium 138, potassium 3.8, chloride 104, CO2 of 31, BUN 20, creatinine 1.16, glucos e 103, calcium 8.9, LDH is 206, albumin is 3.9. WBC 10.3, H and H of 14.5 and 43.1, platelets 298, n eutrophils 68%. Assessment And Plan: 43-year-old male with: 1.Lme-EA-wfowmwzvm myocardial infarction, status post cardiac catheterization and stent in the right coronary artery. We will continue to monitor. Continue chest pain guidelines. 2.Moderate aortic valvular stenosis. Appreciate Cardiology input. We will likely need replacement down the line. We will need to follow up as an outpatient with CT surgery. 3.Shortness of breath secondary to above, improving, currently on room air. 4.History of lymphoma, status post radiation therapy at age 20. Cardiac catheterization did reveal some nodules and lymph nodes. Case discussed with Dr. Smith, Oncology. We will obtain CT scan of the chest with contrast, will need to be delayed until tomorrow in order to prevent contrast-induc ed nephropathy. Patient did receive contrast today with cardiac catheterization. He will need a PET scan as an outpatient. LDH was obtained, which is normal range. Patient has not followed up with h is oncologist in a couple of years. 5.Essential hypertension, stable. The patient's blood pressure somewhat in the normotensive to hypo tensive. We will need to adjust medications. 6.Mixed hyperlipidemia. Continue statin. 7.Ventricular tachycardia. Patient now on amiodarone p.o. We will discuss with Cardiology, need fo r continuing amiodarone as an outpatient. 8.Hypothyroidism. Continue Synthroid. 9.Deep venous thrombosis prophylaxis. Lovenox. Plan: We will likely discharge in a.m. Oncology consult. Follow up on CT scan. /LAVERNE Voice ID: [id number] Report ID: [id number]
[2018-12-13] MEDS: NA CHLORIDE 0.9% 1,000 ML IV SCH (20:16)
[2018-12-13] MEDS: ATORVASTATIN 80 MG TAB PO SCH (20:17)
--- NOTE | 2018-12-13 20:33 | OP ---
Surgeon: Luis Alberto Munoz MD [employer]ishing Vessel: Dede Galloway. Identification: A 43-year-old man. Procedure: Left heart catheterization with coronary angiography. No left ventriculogram was done be cause of aortic stenosis. No right heart catheterization was done because of left bundle-branch bloc k. We also did a percutaneous coronary intervention for a totally occluded right coronary artery. S uccessful 2.75 x 16 Synergy stent was inflated to 10 atmospheres. Procedure Findings: Patient's aortic valve gradient at max was 26 mmHg and the mean gradient 18 mmHg . The estimated aortic valve area more than 1.5 sq cm, so it is in the mgjy-sd-uxevppge range. The left ventriculogram was not done. His left coronary, including left main, LAD, its side branches, ci rcumflex, and its side branches were all free of any significant atherosclerosis. The right coronary was 100% occluded. There was KAM grade 2 collateral flow from the left coronary, filling the right . It looked like a fresh occlusion with thrombus. We were able to give Angiomax, put a 6-[place]oz[place] she ath in, pass a wire across it, pre-dilate it with a 2.5 x 12 Emerge balloon 2 inflations. We did 1 p ost inflation distal to the stent because of a small amount of thrombus distal to the stent that reso lved. After the stent was deployed there was no residual stenosis. Complications: Complications from the procedure none. Procedure In Detail: Right femoral artery was used. We used a 4-[place]oz[place] JL4 and 3DRC diagnostic cath eters. We crossed the valve using the 3DRC and an [place] straight wire. No LV gram was done. We c hanged 6-[place]oz[place]ican, gave Angiomax, demonstrated activated clotting time over 400 seconds. A 3DRC 6-Fren ch guide with side holes was used, [place] wire was used to cross. We dilated with a 2.5 x 12 Emerge stented 2.75 x 16. We tried to stent distal, but the new stent would not cross, so we ballooned it. We ended up with an excellent angiographic result. It looks like a small amount of thrombus was jus t distal to the stent and resolved with dilation and nitroglycerin. Estimated Blood Loss: 30 mL. NORBERT/LAVERNE Voice ID: [id number] Report ID: [id number]
[2018-12-14] MEDS: NA CHLORIDE 0.9% 1,000 ML IV SCH ×3 (05:22→22:31)
[2018-12-14] MEDS: METOPROLOL TAR 25 MG TAB PO SCH ×2 (05:54→22:30)
[2018-12-14 05:55] LABS: Hematocrit 37.8 % (39.6-49.0); MPV 8.5 fL (7.6-11.3); Potassium 4.1 mmol/L (3.5-5.1); RBC Red Blood Cell Count 4.23 M/uL (4.33-5.43)
[2018-12-14] MEDS: PANTOPRAZOLE 40MG TABLET PO SCH (05:57)
[2018-12-14] MEDS: LEVOTHYROXINE SOD 0.1 MG TAB PO SCH (05:57)
[2018-12-14] MEDS: DOCUSATE NA 100 MG CAP PO SCH ×2 (09:00→20:20)
[2018-12-14] MEDS: LISINOPRIL 5 MG TAB PO SCH (09:54)
[2018-12-14] MEDS: CLOPIDOGREL 75 MG TABLET PO SCH (09:54)
[2018-12-14] MEDS: ASPIRIN EC 81 MG TAB PO SCH (09:54)
[2018-12-14] MEDS: BUPROPION HCL XL 150 MG TAB PO SCH (09:54)
[2018-12-14] MEDS: [UNRECOGNIZED DRUG - OTHER] PO SCH (09:55)
[2018-12-14] MEDS: CO Q PO SCH (09:55)
--- NOTE | 2018-12-14 13:58 | RAD REPORT ---
EXAM DESCRIPTION: CT - Chest Abdomen Pelvis W Cont - 12/14/2018 1:24 pm CLINICAL HISTORY: C18.7, C20 COMPARISON: November 2017 TECHNIQUE: Computed axial tomography of the chest, abdomen and pelvis was obtained. 100 cc Isovue-30 0 was administered intravenously. Oral contrast was given All CT scans are performed using dose optimization technique as appropriate and may include automated exposure control or mA/KV adjustment according to patient size. FINDINGS: Mild interstitial opacities are present within the medial lungs. The remainder lungs are c lear A large calcified mediastinal lymph nodes are present. A pleural effusion is not seen. A pericardial effusion is not noted. The liver, spleen, pancreas, adrenals and kidneys unremarkable Normal appendix. There is no evidence of diverticulitis. Curvilinear increased density extends from the anterior aspect of the proximal right common femoral a rtery consistent with active extravasation of contrast. An approximately 7 x 3 centimeter ill-defined retroperitoneal hematoma extends from the right common femoral region into the right pelvis. Small inguinal hernias IMPRESSION: An approximately 7 x 3 centimeter ill-defined retroperitoneal hematoma extends from the right common femoral region into the right pelvis. Active extravasation of contrast is present from t he proximal right common femoral artery. Patient's nurse Gauri notified 1:50 p.m. December 14, 2018
--- NOTE | 2018-12-14 17:09 | P.PN ---
Subjective Date of Service: 12/14/18 Chief Complaint: Shortness of breath Status post cardiac catheterization. Patient noted to have RCA occlusion which was stented. He currently has no complain. He denies any abdominal pain. Physical Examination - Vital Signs Temperature: 97.4 F Blood Pressure: 98/58 Pulse: 78 Respirations: 18 Pulse Ox (%): 99 - Physical Exam General: Alert, In no apparent distress, Oriented x3 HEENT: Mucous membr. moist/pink Neck: Supple, 2+ carotid pulse no bruit, JVD not distended Respiratory: Clear to auscultation bilaterally, Normal air movement Cardiovascular: No edema, Regular rate/rhythm, Normal S1 S2, No murmurs Capillary refill: <2 Seconds Gastrointestinal: Normal bowel sounds, Hypoactive, Soft and benign, Non- distended Musculoskeletal: Other (Right femoral cardiac cath access-no hematoma.) Integumentary: No rashes Neurological: Normal speech, Normal strength at 5/5 x4 extr Assessment And Plan - Current Problems (Diagnosis) (1) NSTEMI (non-ST elevated myocardial infarction) Current Visit: Yes Status: Acute (2) CAD (coronary artery disease) Current Visit: Yes Status: Acute (3) History of lymphoma Current Visit: Yes Status: Acute (4) Essential hypertension Current Visit: Yes Status: Acute (5) Retroperitoneal bleed Current Visit: Yes Status: Acute (6) Aortic stenosis Current Visit: Yes Status: Acute - Plan Continue aspirin, Plavix and Lipitor Metoprolol as his BP would tolerate Check H&H and monitor blood pressure closely to monitor for further retroperitoneal bleed. Check renal function panel tomorrow given multiple contrast media administrations. CT abdomen and pelvis and chest reported large calcified mediastinal lymphadenopathy. Patient is aware of this and relates it to remnant of his prior treated lymphoma. Patient blood pressure appeared to be soft. Monitor BP and rehydrate as needed. .
[2018-12-14] MEDS: COENZYME Q10- 200 MG CAP PO SCH (18:32)
[2018-12-14] MEDS: ATORVASTATIN 80 MG TAB PO SCH (20:20)
[2018-12-15 01:54] LABS: Hematocrit 36.5 % (39.6-49.0)
[2018-12-15 05:56] LABS: Absolute Lymphocytes (CBC) 1.3 K/uL (0.7-4.9); Basophils % 1.7 % (0-1.3); Hematocrit 35.5 % (39.6-49.0); Lymphocytes % 15.1 % (15.3-44.8); MPV 8.7 fL (7.6-11.3); RBC Red Blood Cell Count 3.96 M/uL (4.33-5.43)
[2018-12-15] MEDS: LEVOTHYROXINE SOD 0.1 MG TAB PO SCH (06:07)
[2018-12-15] MEDS: PANTOPRAZOLE 40MG TABLET PO SCH (06:07)
[2018-12-15 06:11] LABS: Potassium 4.2 mmol/L (3.5-5.1)
[2018-12-15] MEDS: [UNRECOGNIZED DRUG - OTHER] PO SCH (09:00)
[2018-12-15] MEDS: CO Q PO SCH (09:00)
[2018-12-15] MEDS: BUPROPION HCL XL 150 MG TAB PO SCH (09:06)
[2018-12-15] MEDS: METOPROLOL TAR 25 MG TAB PO SCH (09:07)
[2018-12-15] MEDS: ASPIRIN EC 81 MG TAB PO SCH (09:09)
[2018-12-15] MEDS: DOCUSATE NA 100 MG CAP PO SCH (09:09)
[2018-12-15] MEDS: CLOPIDOGREL 75 MG TABLET PO SCH (09:09)
[2018-12-15] MEDS: LISINOPRIL 5 MG TAB PO SCH (09:10)
[2018-12-15 09:21] VITALS: O2SAT 98
[2018-12-15 09:34] LABS: Hematocrit 35.3 % (39.6-49.0)
--- NOTE | 2018-12-15 09:42 | P.PN ---
Date of Service: 12/14/18 (Hematology) Hematology consulted for h/o lymphoma. Patient is a 43 year old man currently admitted for s/s due to cardiac issues and s/p PCI. He gives a history of Hodgkin's lymphoma s/o chemotherapy and mediastinal radiation at age 20. He was under the care of an oncologist in [place] for surveillance. Clinically does not seem to have evidence of recurrence. CT scans show a large calcified mediastinal LN (measurements not reported). As per patient he is aware of this finding and likely seems to be old. Recommend he follow up with his oncologist and have this scan compared to his most recent old surveillance scans to make sure no new finding. If he wishes to follow up locally here, our clinic contact information has been provided. We will need to get records and other imaging records if he establishes care with us. Rest of care as per primary medical team and cardiology.
[2018-12-15 12:20] VITALS: BP 113/58; TEMP 97.4
--- NOTE | 2018-12-15 13:04 | P.DS ---
Admission Date: 12/10/18 Discharge Date: 12/15/18 Disposition: ROUTINE DISCHARGE Discharge Condition: GOOD Reason for Admission: Shortness of breath Consultations: Cardiology Hematology-Oncology - Problems (1) NSTEMI (non-ST elevated myocardial infarction) Current Visit: Yes Status: Acute (2) CAD (coronary artery disease) Current Visit: Yes Status: Acute (3) History of lymphoma Current Visit: Yes Status: Acute (4) Essential hypertension Current Visit: Yes Status: Acute (5) Retroperitoneal bleed Current Visit: Yes Status: Acute (6) Aortic stenosis Current Visit: Yes Status: Acute Brief History of Present Illness: 43-year-old gentleman with a and known history of cardiac murmur, remote history of lymphoma status post chemotherapy presented to the emergency department with a complaint of shortness of breath of sudden onset, along with palpitation. In the ED, his troponin was moderately elevated to 0.26. Chest x-ray demonstrated no acute abnormality. He was tachycardic in the ED. Patient was given a dose of metoprolol and admitted for further management of NSTEMI. Hospital Course: Patient was admitted, troponin trended was flat. He was evaluated by cardiology who recommended right heart and left heart catheterization. Cardiac catheterization was done and patient was noted to have complete RCA occlusion which was stented. Patient was monitored overnight. Lymph node enlargement was noted during the procedure. Given patient's remote history of lymphoma, the follow up CT chest, abdomen and pelvis was performed which reported a large calcified mediastinal lymph node. Patient is already aware of this and related to a remnant of his prior treated lymphoma. CT scan also demonstrated extravasation of contrast around the right femoral artery. It also reported streaks retroperitoneal bleed in the same region. Patient was monitored overnight, he was asymptomatic, he experienced a drop in his hemoglobin from 15 to 11 but hemoglobin remained stable at 11 with monitoring. Patient seen and evaluated by Dr. Munoz and deemed stable for discharge. He was also evaluated by Dr. Smith and recommended follow up with her for surveillance of his lymphoma the patient wishes to do so. Vital Signs/Physical Exam: Temp Pulse Resp BP Pulse Ox 97.4 F 71 16 113/58 L 100 12/15/18 12:00 12/15/18 12:00 12/15/18 12:00 12/15/18 12:00 12/15/18 12:00 General: Alert, In no apparent distress, Oriented x3 HEENT: Mucous membr. moist/pink Neck: Supple, JVD not distended Respiratory: Clear to auscultation bilaterally, Normal air movement Cardiovascular: No edema, Regular rate/rhythm Capillary refill: <2 Seconds Gastrointestinal: Normal bowel sounds, Soft and benign, Non-distended, No tenderness Musculoskeletal: Other (Right groin examined. No hematoma or bleeding noted at the site of cardiac catheterization entry.) Integumentary: No rashes Neurological: Normal speech, Normal strength at 5/5 x4 extr Laboratory Data at Discharge: WBC 8.9 K/uL (4.3-10.9) 12/15/18 05:13 Hgb 11.9 g/dL (13.6-17.9) L 12/15/18 09:20 Hct 35.3 % (39.6-49.0) L 12/15/18 09:20 Plt Count 236 K/uL (152-406) 12/15/18 05:13 PT 13.7 SECONDS (9.5-12.5) H 12/10/18 06:57 INR 1.17 12/10/18 06:57 Sodium 143 mmol/L (136-145) 12/15/18 05:13 Potassium 4.2 mmol/L (3.5-5.1) 12/15/18 05:13 BUN 14 mg/dL (7-18) 12/15/18 05:13 Creatinine 1.07 mg/dL (0.55-1.3) 12/15/18 05:13 Glucose 101 mg/dL (74-106) 12/15/18 05:13 Phosphorus 3.6 mg/dL (2.5-4.9) 12/11/18 05:00 Magnesium 2.4 mg/dL (1.8-2.4) 12/12/18 05:07 Total Bilirubin 0.6 mg/dL (0.2-1.0) 12/13/18 05:18 AST 16 U/L (15-37) 12/13/18 05:18 ALT 31 U/L (12-78) 12/13/18 05:18 Alkaline Phosphatase 76 U/L (45-117) 12/13/18 05:18 Troponin I 0.21 ng/mL (0.0-0.045) H 12/10/18 23:11 Triglycerides 119 mg/dL (<150) 12/11/18 05:00 Cholesterol 113 mg/dL (<200) 12/11/18 05:00 HDL Cholesterol 41 mg/dL (40-60) 12/11/18 05:00 Cholesterol/HDL Ratio 2.76 12/11/18 05:00 Home Medications: Albuterol Sulfate [Proair Hfa] 2 puff IH Q6H PRN 12/10/18 Budesonide/Formoterol Fumarate [Symbicort 80-4.5 Mcg Inhaler] 2 puff IH DAILY Bupropion HCl [Bupropion Xl] 300 mg PO DAILY 12/10/18 Levothyroxine Sodium 100 mcg PO DAILY 12/10/18 Lisinopril 5 mg PO DAILY 12/10/18 predniSONE [Deltasone*] 10 mg PO DAILY 12/10/18 Ubidecarenone [Co Q-10] 200 mg PO DAILY AT SUPPER 12/11/18 Ubidecarenone/Vit E Acetate [Co Q-10 100 mg Softgel] 4 cap PO DAILY 12/11/18 Atorvastatin Calcium [Lipitor] 80 mg PO BEDTIME #30 tab 12/15/18 Budesonide/Formoterol Fumarate [Symbicort 80-4.5 Mcg Inhaler] 2 puff IH DAILY Clopidogrel Bisulfate [Plavix*] 75 mg PO DAILY #30 tablet 12/15/18 Levothyroxine [Synthroid*] 0.1 mg PO DAILYAC tab 12/15/18 Lisinopril [Prinivil*] 5 mg PO DAILY #0 tab 12/15/18 Metoprolol Tartrate [Lopressor*] 12.5 mg PO BID 6AM 6PM #60 tab 12/15/18 Ubidecarenone [Coenzyme Q10*] 200 mg PO DAILY AT SUPPER cap 12/15/18 New Medications: Atorvastatin Calcium [Lipitor] 80 mg PO BEDTIME #30 tab Clopidogrel Bisulfate [Plavix*] 75 mg PO DAILY #30 tablet Metoprolol Tartrate [Lopressor*] 12.5 mg PO BID 6AM 6PM #60 tab Time spent managing pt's care (in minutes): 36
--- NOTE | 2018-12-15 14:31 | PN ---
Mr. Pacheco is doing very well. It seems that the calcified lymph nodes are probably not indicativ e of acute reactivation of his lymphoma. He recalls them being there before. Dr. Smith has see n him and will follow him as an outpatient. Try and take up old CAT scans and x-rays. He has a smal l retroperitoneal hematoma on the right. This goes barely into the pelvis not causing a drop in hemo globin and hematocrit for any pain or any other compromise. [facility] He will be at minimal activity over 5 days and then resume normal activities. He will be sent ho pr taking aspirin, Plavix, atorvastatin, lisinopril, metoprolol. NORBERT/MODL Voice ID: [id number] Report ID: [id number]
== END 2018-12-15 13:35 | disposition home or self-care (01) | DRG 281 ==
LOC: ER 06:25 → ERHOLD 08:10 → 3RD-ICU 14:55 → 4TH 12-12 10:15
PROVIDERS: ADMIT Family Medicine; ATTEND Internal Medicine
PROC: 4A023N7 Measurement of Cardiac Sampling and Pressure, Left Heart, Percutaneous Approach (ICD-10-PCS; principal; 2018-12-13)
PROC: B205YZZ Plain Radiography of Left Heart using Other Contrast (ICD-10-PCS; 2018-12-13)
PROC: B201YZZ Plain Radiography of Multiple Coronary Arteries using Other Contrast (ICD-10-PCS; 2018-12-13)
DX: I21.4 Non-ST elevation (NSTEMI) myocardial infarction (principal); C81.90 Hodgkin lymphoma, unspecified, unspecified site; I47.2 Ventricular tachycardia; I10 Essential (primary) hypertension; E03.9 Hypothyroidism, unspecified; R01.1 Cardiac murmur, unspecified; E78.2 Mixed hyperlipidemia; I35.0 Nonrheumatic aortic (valve) stenosis
CPT/HCPCS: 36415; 71045; 71260; 74177; 80048; 80053; 80061; 80076; 83615; 83735; 83880; 84100; 84443; 84484; 85014; 85018; 85025; 85027; 85347; 85610; 92928; 93005; 93306; 93458; 94760; 96374; 99285; C1725; C1760; C1893; J0282; J0583; J1650; J1940; J2250; J3010; J7030; J7040; J7060; Q9967

== ENCOUNTER 2018-12-20 02:59 | Emergency (ER) | payer BC ==
[2018-12-20 03:59] LABS: Protime INR 1.12
[2018-12-20 04:00] LABS: Absolute Lymphocytes (CBC) 1.2 K/uL (0.7-4.9); Basophils % 0.7 % (0-1.3); Hematocrit 39.9 % (39.6-49.0); Lymphocytes % 8.3 % (15.3-44.8); MPV 8.7 fL (7.6-11.3); RBC Red Blood Cell Count 4.49 M/uL (4.33-5.43)
[2018-12-20 04:12] LABS: Albumin 3.9 g/dL (3.4-5.0); Bilirubin Direct 0.3 mg/dL (0-0.2); Bilirubin Total 0.8 mg/dL (0.2-1.0); Magnesium 2.1 mg/dL (1.8-2.4); Potassium 3.6 mmol/L (3.5-5.1); Protein, Total 7.5 g/dL (6.4-8.2); Troponin (Emerg Dept Use Only) 0.04 ng/mL (0.0-0.045)
--- NOTE | 2018-12-20 05:59 | EDPHYS ---
Physician Documentation [facility] Name: Jere Pacheco Age: 43 yrs Sex: Male : 1975 Arrival Date: 12/20/2018 Time: 03:01 Bed 17 Private MD: ED Physician Kenny Hernandez HPI: 12/20 03:22 This 43 yrs old Male presents to ER via Unassigned with complaints of chest tw4 fluttering. 03:22 The patient presents with a history of heart racing. Context: The symptoms occur at tw4 rest. Onset: The symptoms/episode began/occurred today. Duration: The patient or guardian reports a single episode, that is still ongoing, but improving. Modifying factors: The symptoms are aggravated by OTC medication, Mucinex DM, The symptoms are alleviated by nothing. Associated signs and symptoms: The patient has no apparent associated signs or symptoms. The patient has not experienced similar symptoms in the past. Historical: - Allergies: 03:39 Erythromycin; - Home Meds: 03:39 anxiety medication [Active]; levothyroxine oral [Active]; lisinopril 5 mg Oral tab 1 wh tab once daily [Active]; Prednisone Oral [Active]; Symbicort inhalation [Active]; metoprolol tartrate 25 mg Oral tab .5 tab 2 times per day [Active]; aspirin 81 mg Oral chew 1 tab once daily [Active]; clopidogrel 75 mg oral tab 1 tab once daily [Active]; - PMHx: 03:39 Anxiety; Heart Murmur; Hodgkins Lymphoma; Hypertension; Hypothyroidism; 03:47 Myocardial infarction; - PSHx: 03:39 Heart stents; - Immunization history:: Adult Immunizations up to date. - Social history:: Smoking status: Patient/guardian denies using tobacco. - Ebola Screening: : Patient negative for fever greater than or equal to 101.5 degrees Fahrenheit, and additional compatible Ebola Virus Disease symptoms Patient denies exposure to infectious person. ROS: 03:22 Constitutional: Negative for fever, chills, and weight loss, Eyes: Negative for injury, tw4 pain, redness, and discharge, Respiratory: Negative for shortness of breath, cough, wheezing, and pleuritic chest pain, Abdomen/GI: Negative for abdominal pain, nausea, vomiting, diarrhea, and constipation, Back: Negative for injury and pain, MS/Extremity: Negative for injury and deformity, Skin: Negative for injury, rash, and discoloration, Neuro: Negative for headache, weakness, numbness, tingling, and seizure. 03:22 Cardiovascular: Positive for palpitations, Negative for chest pain, edema, orthopnea, acute changes. Exam: 03:22 Constitutional: This is a well developed, well nourished patient who is awake, alert, tw4 and in no acute distress. Head/Face: Normocephalic, atraumatic. Chest/axilla: Normal chest wall appearance and motion. Nontender with no deformity. No lesions are appreciated. Respiratory: Lungs have equal breath sounds bilaterally, clear to auscultation and percussion. No rales, rhonchi or wheezes noted. No increased work of breathing, no retractions or nasal flaring. Abdomen/GI: Soft, non-tender, with normal bowel sounds. No distension or tympany. No guarding or rebound. No evidence of tenderness throughout. Back: No spinal tenderness. No costovertebral tenderness. Full range of motion. MS/ Extremity: Pulses equal, no cyanosis. Neurovascular intact. Full, normal range of motion. Neuro: Awake and alert, GCS 15, oriented to person, place, time, and situation. Cranial nerves II-XII grossly intact. Motor strength 5/5 in all extremities. Sensory grossly intact. Cerebellar exam normal. Normal gait. 03:22 Cardiovascular: Rate: tachycardic, actual rate is 106 bpm, Rhythm: regular, Pulses: no pulse deficits are appreciated. Vital Signs: 03:05 BP 143 / 103; Pulse 115; Resp 18; Temp 98.3; Pulse Ox 99% on R/A; 04:17 BP 150 / 87; Pulse 98; Resp 18; Pulse Ox 96% on R/A; 05:00 BP 134 / 97; Pulse 96; Resp 18; Pulse Ox 98% on R/A; ms1 05:07 Weight 85.28 kg; Height 5 ft. 8 in. (172.72 cm); 06:00 BP 146 / 80; Pulse 103; Resp 18; Pulse Ox 98% on R/A; ms1 05:07 Body Mass Index 28.59 (85.28 kg, 172.72 cm) MDM: 03:16 Patient medically screened. tw4 06:07 Differential diagnosis: arrythmia, dehydration, stress disorder. Data reviewed: vital tw4 signs, nurses notes, lab test result(s), cardiac enzymes, troponin i, CBC, white blood cell count, hemoglobin, hematocrit, platelets, electrolytes, sodium, potassium, chloride, serum bicarbonate, BUN, creatinine, serum glucose. 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 Counseling: I had a detailed discussion with the patient and/or guardian regarding: the historical points, exam findings, and any diagnostic results supporting the discharge/admit diagnosis, lab results. Special discussion: I discussed with the patient/guardian in detail that at this point there is no indication for admission to the hospital. It is understood, however, that if the symptoms persist or worsen the patient needs to return immediately for re-evaluation. 12/20 03:12 Order name: Basic Metabolic Panel; Complete Time: 05:06 12/20 05:06 Interpretation: Normal except: GLUC 148; GFR 63. 12/20 03:12 Order name: CBC with Diff; Complete Time: 05:06 12/20 05:06 Interpretation: Normal except: WBC 13.9; HGB 13.3; PLT 304; JAIMIE% 78.7; LYM% 8.3; NEUT A tw4 11.0. 12/20 03:12 Order name: LFT's; Complete Time: 05:06 12/20 05:07 Interpretation: Normal except: BILID 0.3; GLOB 3.6. 12/20 03:12 Order name: Magnesium; Complete Time: 05:06 12/20 05:07 Interpretation: Within normal limits: MG 2.1. 12/20 03:12 Order name: NT PRO-BNP; Complete Time: 05:06 12/20 05:07 Interpretation: Within normal limits: NT PRO-BNP 1124. 12/20 03:12 Order name: PT-INR; Complete Time: 05:06 12/20 05:07 Interpretation: Within normal limits: PT 13.2. 12/20 03:12 Order name: Troponin (emerg Dept Use Only); Complete Time: 05:06 12/20 05:07 Interpretation: Within normal limits: TROPED 0.04. 12/20 03:12 Order name: EKG; Complete Time: 03:13 12/20 03:12 Order name: Cardiac monitoring; Complete Time: 12/20 03:12 Order name: EKG - Nurse/Tech; Complete Time: 12/20 03:12 Order name: IV Saline Lock; Complete Time: 12/20 03:12 Order name: Labs collected and sent; Complete Time: 12/20 03:12 Order name: O2 Per Protocol; Complete Time: 12/20 03:12 Order name: O2 Sat Monitoring; Complete Time: EC:15 Rhythm is regular, Sinus tachycardia with Left bundle branch block. QRS [place] is Normal. tw4 Left axis deviation noted. CT interval is normal. QRS interval is normal. QT interval is normal. No Q waves. T waves are Peaked in leads V1, V2, V3. ST Segment is depressed in leads II, III, 1-2mm. Clinical impression: Abnormal EKG without significant change and Lateral DE - age indeterminate. Interpreted by me. Reviewed by me. Administered Medications: No medications were administered Disposition: 12/20/18 05:58 Discharged to Home. Impression: Palpitations. - Condition is Stable. - Discharge Instructions: Holter Monitoring, Palpitations, Palpitations, [id number]. - Medication Reconciliation Form, Thank You Letter, Antibiotic Education, Prescription Opioid Use form. - Follow up: Private Physician; When: Upon discharge from the Emergency Department; Reason: Recheck today's complaints, Continuance of care. Follow up: Luis Alberto Munoz MD; When: Upon discharge from the Emergency Department; Reason: Recheck today's complaints, Continuance of care. - Problem is new. - Symptoms have improved. Signatures: Dispatcher [employer] EDMS Lorene Kowalski Terrence, MD MD tw4 Corrections: (The following items were deleted from the chart) 06:26 05:58 12/20/2018 05:58 Discharged to Home. Impression: Palpitations. Condition is wh Stable. Forms are Medication Reconciliation Form, Thank You Letter, Antibiotic Education, Prescription Opioid Use. Follow up: Private Physician; When: Upon discharge from the Emergency Department; Reason: Recheck today's complaints, Continuance of care. Follow up: Luis Alberto Munoz; When: Upon discharge from the Emergency Department; Reason: Recheck today's complaints, Continuance of care. Problem is new. Symptoms have improved. tw4
--- NOTE | 2018-12-20 05:59 | ER ---
Nurse's Notes [facility] Name: Jere Pacheco Age: 43 yrs Sex: Male : 1975 Arrival Date: 12/20/2018 Time: 03:01 Bed 17 Private MD: Diagnosis: Palpitations Presentation: 12/20 03:05 Presenting complaint: Patient states: he felt some chest tightness and that he had some chest fluttering's. Pt denies chest pain, States he had NSTEMI a few days ago and was just discharged last Thursday S/P Cardiac Cath with stent placement. Pt feels taking Mucinex DM contributed to what he was feeling, Pt states he is just a little bit anxious since he just had NSTEMI. Transition of care: patient was not received from another setting of care. Onset of symptoms was December 20, 2018. Risk Assessment: Do you want to hurt yourself or someone else? Patient reports no desire to harm self or others. Initial Sepsis Screen: Does the patient meet any 2 criteria? HR > 90 bpm. Does the patient have a suspected source of infection? No. Patient's initial sepsis screen is negative. Care prior to arrival: None. 03:05 Method Of Arrival: Ambulatory 03:05 Acuity: EVAN 3 Historical: - Allergies: 03:39 Erythromycin; - Home Meds: 03:39 anxiety medication [Active]; levothyroxine oral [Active]; lisinopril 5 mg Oral tab 1 wh tab once daily [Active]; Prednisone Oral [Active]; Symbicort inhalation [Active]; metoprolol tartrate 25 mg Oral tab .5 tab 2 times per day [Active]; aspirin 81 mg Oral chew 1 tab once daily [Active]; clopidogrel 75 mg oral tab 1 tab once daily [Active]; - PMHx: 03:39 Anxiety; Heart Murmur; Hodgkins Lymphoma; Hypertension; Hypothyroidism; 03:47 Myocardial infarction; - PSHx: 03:39 Heart stents; - Immunization history:: Adult Immunizations up to date. - Social history:: Smoking status: Patient/guardian denies using tobacco. - Ebola Screening: : Patient negative for fever greater than or equal to 101.5 degrees Fahrenheit, and additional compatible Ebola Virus Disease symptoms Patient denies exposure to infectious person. Screenin:00 Abuse screen: Denies threats or abuse. Denies injuries from another. Nutritional wh screening: No deficits noted. Tuberculosis screening: No symptoms or risk factors identified. Fall Risk None identified. Assessment: 03:10 General: Appears in no apparent distress. Behavior is calm, cooperative, appropriate wh for age. Pain: Denies pain. Neuro: Level of Consciousness is awake, alert, obeys commands, Oriented to person, place, time, situation, Appropriate for age. Cardiovascular: Reports Chest flutters Heart tones S1 S2 Rhythm is sinus tachycardia. Respiratory: Airway is patent Respiratory effort is even, unlabored, Respiratory pattern is regular, symmetrical. Respiratory: Breath sounds are clear bilaterally. GI: Abdomen is flat, non-distended. : No signs and/or symptoms were reported regarding the genitourinary system. EENT: No signs and/or symptoms were reported regarding the EENT system. Derm: Skin is intact, is healthy with good turgor, Skin is pink, warm \T\ dry. normal. Musculoskeletal: Circulation, motion, and sensation intact. 04:16 Reassessment: Patient appears in no apparent distress at this time. No changes from previously documented assessment. Patient and/or family updated on plan of care and expected duration. Pain level reassessed. Patient is alert, oriented x 3, equal unlabored respirations, skin warm/dry/pink. Patient denies pain at this time. 05:00 Reassessment: Patient appears in no apparent distress at this time. No changes from previously documented assessment. Patient and/or family updated on plan of care and expected duration. Pain level reassessed. Patient is alert, oriented x 3, equal unlabored respirations, skin warm/dry/pink. Patient denies pain at this time. 06:00 Reassessment: Patient appears in no apparent distress at this time. No changes from previously documented assessment. Patient and/or family updated on plan of care and expected duration. Pain level reassessed. Patient is alert, oriented x 3, equal unlabored respirations, skin warm/dry/pink. Patient denies pain at this time. Vital Signs: 03:05 BP 143 / 103; Pulse 115; Resp 18; Temp 98.3; Pulse Ox 99% on R/A; wh 04:17 BP 150 / 87; Pulse 98; Resp 18; Pulse Ox 96% on R/A; wh 05:00 BP 134 / 97; Pulse 96; Resp 18; Pulse Ox 98% on R/A; ms1 05:07 Weight 85.28 kg; Height 5 ft. 8 in. (172.72 cm); wh 06:00 BP 146 / 80; Pulse 103; Resp 18; Pulse Ox 98% on R/A; ms1 05:07 Body Mass Index 28.59 (85.28 kg, 172.72 cm) ED Course: 03:00 Patient has correct armband on for positive identification. Placed in gown. Bed in low wh position. Call light in reach. Side rails up X 1. monitoring coordinator on. Pulse ox on. NIBP on. 03:00 Arm band placed on. 03:01 Patient arrived in ED. ag3 03:02 Lorene Kowalski is Primary Nurse. 03:11 Kenny Hernandez MD is Attending Physician. tw4 03:15 Inserted saline lock: 20 gauge in left antecubital area, using aseptic technique. Blood wh collected. 03:33 Triage completed. 05:58 Luis Alberto Munoz MD is Referral Physician. tw4 06:24 No provider procedures requiring assistance completed. IV discontinued, intact, wh bleeding controlled, No redness/swelling at site. Administered Medications: No medications were administered Outcome: 05:58 Discharge ordered by . tw4 06:24 Discharged to home ambulatory. 06:24 Condition: stable 06:24 Discharge instructions given to patient, Instructed on discharge instructions, follow up and referral plans. POC Palpitations and Holter Monitoring Demonstrated understanding of instructions, follow-up care, POC 06:26 Patient left the ED. Signatures: Lorene Kowalski Kenny Hernandez MD MD tw4 Niesha Greenwood ms1 Nemo Willett ag3
[2018-12-20 06:34] VITALS: TEMP 98.3
[2018-12-20 06:37] VITALS: O2SAT 98
[2018-12-20 06:39] VITALS: BP 146/80
--- NOTE | 2018-12-20 08:37 | EKG ---
Test Date: 2018-12-20 Test Time: 03:08:30 Project Officer: ANH MEASUREMENT RESULTS: Intervals: Rate: 109 ND: 150 QRSD: 148 QT: 390 QTc: 525 [place]: P: 43 ND: 150 QRS: 13 T: 10 INTERPRETIVE STATEMENTS: Sinus tachycardia Left bundle branch block Abnormal ECG Compared to ECG 12/10/2018 10:58:15 No significant changes Electronically Signed On 12-20-18 08:37:20 DRYING MACHINE OPERATOR by Luis Alberto Munoz
--- NOTE | 2018-12-20 15:55 | EKG ---
Test Date: 2018-12-20 Test Time: 03:09:29 Results Engineer: ANH MEASUREMENT RESULTS: Intervals: Rate: 109 TN: 148 QRSD: 150 QT: 386 QTc: 519 [place]: P: 29 TN: 148 QRS: 15 T: -51 INTERPRETIVE STATEMENTS: Sinus tachycardia Left bundle branch block Abnormal ECG Compared to ECG 12/20/2018 03:08:30 No significant changes Electronically Signed On 12-20-18 15:54:20 FUNCTIONAL MANAGER by Luis Alberto Munoz
== END 2018-12-20 06:26 | disposition home or self-care (01) ==
LOC: ER 02:59
DX: R00.2 Palpitations (principal); I10 Essential (primary) hypertension; E03.9 Hypothyroidism, unspecified; I25.2 Old myocardial infarction; F41.9 Anxiety disorder, unspecified; Z88.3 Allergy status to other anti-infective agents
CPT/HCPCS: 36415; 80048; 80076; 83735; 83880; 84484; 85025; 85610; 93005; 99284

== ENCOUNTER 2021-01-15 20:06 | Emergency (ER) | payer BC, OTHER ==
[2021-01-15 20:55] LABS: Absolute Lymphocytes (CBC) 2.3 K/uL (0.7-4.9); Basophils % 1.1 % (0-1.3); Hematocrit 42.7 % (39.6-49.0); Lymphocytes % 23.9 % (15.3-44.8); MPV 8.4 fL (7.6-11.3); RBC Red Blood Cell Count 4.72 M/uL (4.33-5.43)
[2021-01-15 21:05] LABS: Protime INR 1.03
[2021-01-15 21:18] LABS: ALT/SGPT 75 U/L (12-78); AST/SGOT 87 U/L (15-37); Albumin 3.6 g/dL (3.4-5.0); Alkaline Phosphatase 70 U/L (45-117); BUN Blood Urea Nitrogen 16 mg/dL (7-18); Bicarbonate 27 mmol/L (21-32); Bilirubin Direct 0.2 mg/dL (0-0.2); Bilirubin Total 0.5 mg/dL (0.2-1.0); Glucose Level 140 mg/dL (74-106); Magnesium 2.3 mg/dL (1.8-2.4); NT PRO-BNP 209 pg/mL (<125); Potassium 3.8 mmol/L (3.5-5.1); Protein, Total 7.4 g/dL (6.4-8.2); Sodium Level 142 mmol/L (136-145); Troponin (Emerg Dept Use Only) < 0.02 ng/mL (0.0-0.045)
--- NOTE | 2021-01-15 21:18 | RAD REPORT ---
EXAM DESCRIPTION: RAD - Wrist Right 3 View - 01/15/2021 9:10 pm CLINICAL HISTORY: Right wrist pain status post injury FINDINGS: No fracture or dislocation is seen. If the patient continues to have symptoms to suggest a n occult fracture then a followup plain film series in 7 days would be recommended.
--- NOTE | 2021-01-15 21:20 | RAD REPORT ---
EXAM DESCRIPTION: RAD -Hand Left 3 View - 01/15/2021 9:10 pm CLINICAL HISTORY: Left hand pain status post injury FINDINGS: No fracture or dislocation is seen.
--- NOTE | 2021-01-15 21:27 | RAD REPORT ---
EXAM DESCRIPTION: Ciara Single View01/15/2021 9:10 pm CLINICAL HISTORY: Chest pain COMPARISON: 2019 FINDINGS: The lungs appear clear of acute infiltrate. The heart is normal size. Calcified mediastin al lymph nodes are unchanged. IMPRESSION: No acute abnormalities displayed
[2021-01-16] MEDS ORDERED: NA CHLORIDE 0.9% 1,000 ML ONE (00:46)
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
[2021-01-16 04:00] VITALS: TEMP 97.4
[2021-01-16 04:02] VITALS: O2SAT 100
[2021-01-16 04:10] VITALS: BP 99/68
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
--- NOTE | 2021-01-16 12:04 | EKG ---
Test Date: 2021-01-15 Test Time: 20:42:25 [place] Operator: ANNALISA Hand MEASUREMENT RESULTS: Intervals: Rate: 75 IN: 168 QRSD: 114 QT: 388 QTc: 433 [place]: P: 52 IN: 168 QRS: 15 T: 78 INTERPRETIVE STATEMENTS: Normal sinus rhythm Incomplete right bundle branch block Borderline ECG Compared to ECG 12/20/2018 03:09:29 Incomplete right bundle-branch block now present Sinus tachycardia no longer present Left bundle-branch block no longer present Electronically Signed On 01-16-21 12:02:46 MOBILE PET GROOMER by Delonte Diaz
== END 2021-01-16 03:47 | disposition home or self-care (01) ==
LOC: ER 20:06
DX: S02.2XXA Fracture of nasal bones, initial encounter for closed fracture (principal); G89.11 Acute pain due to trauma; S20.211A Contusion of right front wall of thorax, initial encounter; S30.1XXA Contusion of abdominal wall, initial encounter; S60.222A Contusion of left hand, initial encounter; V49.40XA Driver injured in collision with unspecified motor vehicles in traffic accident, initial encounter; I10 Essential (primary) hypertension; I25.2 Old myocardial infarction; Z79.82 Long term (current) use of aspirin; Z95.818 Presence of other cardiac implants and grafts; Z88.3 Allergy status to other anti-infective agents
CPT/HCPCS: 93005; 85025; 80048; 36415; 83735; 85610; 80076; 85018; 84484; 83880; 70450; 72125; 71260; 74177; 71045; 73130; 73110; 99285; J7030